=== PATIENT | male | born 1975 | race Caucasian/White ===

== ENCOUNTER → 2017-02-17 | Outpatient (CLI) | payer OTHER ==
[~2017-02-17] MED LIST: HYDROCODONE-AP1 EAC6 PO; IBUPROFEN 800800 M1 PO; LISINOPRIL5 MG PO; MELATONIN5 M1 PO; OXYCODONE HCL30 MG PO
== END ==
LOC: RAD 08:39 → CAT 08:39
DX: K57.92 Diverticulitis of intestine, part unspecified, without perforation or abscess without bleeding (principal); K76.0 Fatty (change of) liver, not elsewhere classified; K42.9 Umbilical hernia without obstruction or gangrene; K52.9 Noninfective gastroenteritis and colitis, unspecified

== ENCOUNTER → 2017-03-10 | Outpatient (CLI) | payer OTHER ==
[~2017-03-10] MED LIST changes: +AMLODIPINE BESY10 MG PO; +ATORVASTATIN CA40 MG PO; +BRILINTA90 MG PO; +CARVEDILOL12.5 MG PO; +CELEXA20 MG PO; +CLONIDINE0.1 PO; +FLAGYL500 MG PO; +LISINOPRIL10 MG PO; +NORVASC10 MG PO; +XANAX 0.5 MG0.5 MG PO
== END ==
LOC: CAT 07:37
DX: L02.91 Cutaneous abscess, unspecified (principal)

== ENCOUNTER → 2017-03-21 | Outpatient (CLI) | payer OTHER | LOC: RAD 07:36 | DX: L98.8 Other specified disorders of the skin and subcutaneous tissue (principal); K57.92 Diverticulitis of intestine, part unspecified, without perforation or abscess without bleeding ==

== ENCOUNTER 2017-04-20 08:01 | Inpatient (IN) | payer OTHER ==
[~2017-04-20] VITALS: Ht 190.5 cm; Wt 105.7 kg
--- NOTE | ~2017-04-20 | EKG ---
[address] [place] [address] ELECTROCARDIOGRAM REPORT Name: KEO COOK Room #: 412-P ADM IN M.R.#: [id number] Admission: 04/20/17 Attend Phys: Corey Camejo MD, F Discharge: Date of : 77 Report #: [id number] THIS REPORT FOR: //name// 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
--- NOTE | ~2017-04-20 | HC ---
[facility] [place] [address] CONSULTATION Name: KEO COOK Room #: 412-P [facility] IN M.R.#: [id number] Admission: 04/20/17 Attend Phys: Corey Camejo MD, F Discharge: Date of : 77 Report #: [id number] THIS REPORT FOR: //name// CC: Kd Camejo REASON FOR CONSULTATION: I was asked to evaluate concerning sigmoid diverticulitis with fistula and pelvic abscess. Initially diagnosed first week of January. Drain was placed. IV antibiotics started. Cultures revealed mixed gilberto including E. coli peptostreptococcus, Bacteroides fragilis, Shanda albicans. Treated with outpatient IV antibiotics and switched to oral therapy. During his outpatient treatment, he had replacement of the pelvic drain. CAT scan showed stability of the pelvic process with persistent enteric fistula. Other complication included hypertension which was addressed by his primary care. He is now postoperative day #1 from sigmoid resection and clearance of the pelvic abscess. He also had primary repair of incarcerated epigastric hernia. Postoperatively, he has done well. I discussed the findings with Dr. Camejo. It was noted that a small amount of pus was encountered with dissection off the pelvic wall. No intraoperative complications were evident. Postoperatively, has been on cefoxitin. ALLERGIES: PENICILLIN, reaction not known. Tolerated cephalosporins. MEDICATIONS: As noted on his MAR including cefoxitin. FAMILY HISTORY: Noncontributory. 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 PAST MEDICAL HISTORY: Ventral hernia repair, knee surgery. REVIEW OF SYSTEMS: Blood pressure now is under control. No other pulmonary, GI or complaints. PHYSICAL EXAMINATION: VITAL SIGNS: He is afebrile, hemodynamically stable. GENERAL: He is alert and cooperative and pleasant, in reasonable pain control. HEENT: Unremarkable. CHEST: Clear. HEART: Regular. ABDOMEN: Mild diffuse tenderness. Abdominal incisions dressed and dry. EXTREMITIES: Unremarkable. LABORATORY DATA: Electrocardiogram unremarkable. Hemoglobin 12.4, WBC 9.8, platelet count 288,000, differential unremarkable. Sodium 137, potassium 4.4, bicarbonate 25, creatinine 0.9. Path report pending. 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 This was taken down and has primary anastomosis. No intraoperative cultures obtained. We will continue antibiotic therapy with cefoxitin through the weekend. We will reevaluate prior to discharge. <ELECTRONICALLY SIGNED> By: Johnathon Liriano MD 04/24/17 1548 1303 1806 Johnathon Liriano MD /nt
--- NOTE | ~2017-04-20 | S ---
[facility] [place] [address] SURGICAL PATH RPT PROCEDURE Name: FREDERIC COOK Room #: 412-P ADM IN M.R.#: [id number] Admission: 04/20/17 Date of : 77 Discharge: Report #: [id number] Path Case #: [id number] PATHOLOGY REPORT COLLECTION DATE: 04/20/2017 RECEIVED DATE: 04/20/2017 SUBMITTING PHYS: Dr. Corey Camejo OTHER PHYS: Dr. Gerard Membreno, DO Dr. Baldev Gipson SPECIMEN(S) RECEIVED: A.Umbilical hernia sac B.Sigmoid colon * * * * * * * * * * * * FINAL DIAGNOSIS: A. Umbilical hernia sac, repair: - Reactive changes and congested tissue, compatible with hernia sac. B. Sigmoid colon, colectomy: - Marked acute diverticulitis. - Negative for dysplasia or malignancy. - Margins of resection unremarkable. (IUV:leonardo; 04/24/2017) PATHOLOGIST: Korina Arechiga M.D. REPORT ELECTRONICALLY SIGNED BY: Korina Arechiga M.D. DATE/TIME: 04/24/2017 14:47 * * * * * * * * * * * * GROSS PATHOLOGY: A. Received in formalin labeled "Frederic Cook, hernia sac (umbilical)," is a piece of fibroadipose tissue with attached fibromembranous tissue measuring 4.2 x 4.1 x 2.5 cm. No nodules or lesions are identified. Vehicle Service Attendant tissue is submitted in cassette A1. B. The specimen is received in formalin labeled "Frederic Cook sigmoid colon". Received is an unoriented segment of colon measuring 23.8 cm in length by 3.7 cm in diameter. One margin is stapled closed and the opposite margin is opened. The serosal surface is pink-rutledge to dusky rutledge-waller appearance with a moderate amount of overlying adhesions. The attached pericolic fat measures up to 4.7 cm in thickness. The specimen is opened along the antimesenteric line to reveal light waller to pink-waller mucosa with normal architectural folds. Multiple diverticula are present. There is an area of possible perforation present. The opposing serosal surface is inked [facility] [place] [address] SURGICAL PATH RPT PROCEDURE Name: FREDERIC COOK Room #: [facility] IN M.R.#: [id number] Admission: 04/20/17 Date of : 77 Discharge: Report #: [id number] Path Case #: [id number] black. The specimen is submitted representatively as follows: B1 stapled margin B2 opened margin B3 possible perforation B4-B5 goodwill representative sections of diverticula. (CAA; 04/21/2017) CLINICAL HISTORY: Diverticulitis INITIAL CPT CODE(S): A; 87458 B; 65492 Professional services performed by [facility] at [facility] [address] [place] [address] Technical services performed by [facility] at [address] [place] [address]., [address], [place] [address]. [facility] [address] [place] [address] PHONE: [phone] DIRECTOR: Cameron Kearney M.D. * * * END OF REPORT * * *
--- NOTE | ~2017-04-20 | O ---
[facility] [place] [address] OPERATIVE REPORT Name: KEO COOK Room #: 412-P [facility] IN M.R.#: [id number] Admission: 04/20/17 Attend Phys: Corey Camejo MD, F Discharge: Date of : 77 Report #: [id number] THIS REPORT FOR: //name// CC: Johnathon Camejo MD DATE OF SERVICE: 04/20/2017 SURGEON: Corey Camejo MD RN BONE MARROW TRANSPLANT: Gerard Membreno DO PREOPERATIVE DIAGNOSES: 1. Sigmoid diverticulitis/colitis with abscess and fistulization. 2. Epigastric hernia. POSTOPERATIVE DIAGNOSES: 1. Sigmoid diverticulitis/colitis with abscess and fistulization. 2. Incarcerated epigastric hernia. PROCEDURES: 1. Laparoscopic sigmoid colectomy with hand assistance. 2. Laparoscopic mobilization of the splenic flexure. 3. Laparoscopic lysis of adhesions. 4. Primary repair of incarcerated epigastric hernia. 5. Placement of topical negative pressure dressing (LYNDA). ANESTHESIA: General endotracheal anesthesia and local anesthetic. ESTIMATED BLOOD LOSS: 75 mL SPECIMEN: Sigmoid colon, epigastric hernia sac. COMPLICATIONS: None appreciated. INDICATIONS FOR PROCEDURE: This is a 41-year-old male patient with a left pelvic abscess. The patient was admitted to [facility] on 01/31/2017 with abdominal pain. He was found to have an abscess, felt to be secondary to either diverticulitis or colitis. A percutaneous drain was placed by Interventional Radiology and the patient was placed on IV antibiotics. He was dismissed from the hospital and has been followed closely. Followup CT showed persistent thickening and stranding of the sigmoid colon suggestive of diverticulitis or colitis with an adjacent abscess with extraluminal gas. There was no evidence for a new abscess or fluid collection. Tube check revealed the [facility] [address] [place] [address] OPERATIVE REPORT Name: KEO COOK Room #: 412-P [facility] IN [facility].#: [id number] Admission: 04/20/17 Attend Phys: Corey Camejo MD, F Discharge: Date of : 77 Report #: [id number] catheter tubing to be coiled in the site of the previous abscess. The cavity appeared to have completely resolved; however, upon injection of contrast into the drain, contrast immediately entered the sigmoid colon where numerous diverticula were seen. The drain was left in place. The drain continues to produce purulent fluid. The patient denies fever or chills and his bowels are functional. He presents today for laparoscopic, possible open sigmoid colectomy, possible ileostomy. OPERATIVE FINDINGS: Upon entrance into the abdominal cavity laparoscopically, the epigastric hernia was visualized 2 cm cephalad to the umbilicus. It was incarcerated with omentum and abdominal wall fat. The sigmoid colon was tightly adherent to the abdominal and pelvic sidewall. After taking the colon down off the abdominal and pelvic sidewall, soft areas of the colon were identified proximally and distally. After resecting the bowel, mobilization of the splenic flexure was necessary to create a tension-free anastomosis. Hand assist was used to take down the splenic flexure. After creation of the 29 mm EEA stapled end-to-end anastomosis, the initial leak test showed small air bubbles. The bubbles appeared to be emanating from the anterior staple line. Interrupted Lembert sutures were placed and follow up leak test was negative. Tisseel was placed on the anastomosis thereafter. No other significant intra-abdominal pathology was identified. At the conclusion of the operation, the sponge, needle and instrument counts were correct. DESCRIPTION OF PROCEDURE IN DETAIL: After the risks, benefits and expectations, the operations were discussed in detail with the patient, informed consent was obtained. The patient was identified in the preoperative holding area. He was given IV antibiotics as documented in the chart in [facility] with the [facility] metrics. The patient was then taken to the operating room and he was placed in the supine position. SCDs were placed on the patient's bilateral lower extremities and pneumatic compression was initiated. The patient was then given IV sedation and he was intubated without incident. He was placed in the low lying dorsal lithotomy position in [facility]. His abdomen was then prepped and draped in the standard sterile fashion. A time-out was performed to identify the correct patient and procedure. Local anesthetic was infiltrated into the skin and subcutaneous tissue in the right upper quadrant of the abdomen where a small transverse incision was made. A 5 mm Visiport was placed intraabdominally with a 0-degree angled laparoscope. Pneumoperitoneum was achieved with insufflation of carbon dioxide to 15 mmHg. A 30-degree angled laparoscope was then inserted. A right lower quadrant 12 mm and upper epigastric 5 mm port were each placed under direct visualization after local anesthetic was infiltrated into the skin and subcutaneous tissue and appropriately sized incisions were made. An additional 5 mm port was placed in the left lower quadrant using a similar technique. The tightly adherent and inflamed sigmoid colon was dissected off of the left [facility] [address] [place] [address] OPERATIVE REPORT Name: KEO COOK Room #: 412-P [facility] IN ..#: [id number] Admission: 04/20/17 Attend Phys: Corey Camejo MD, F Discharge: Date of : 77 Report #: [id number] abdominal and pelvic sidewall with sharp dissection, blunt dissection and use of the EnSeal energy device. A small amount of pus was encountered. The drain was not seen. The rectosigmoid colon was then divided with 2 firings of the green load endoscopic 60 mm powered BARNEY stapler. A window was made in the mesentery to allow for this. The sigmoid colon mesentery and inferior mesenteric artery were then divided with the EnSeal energy device with good hemostasis. The inferior mesenteric artery was divided as well with good hemostasis. Dissection was then carried along the white line of Toldt up to an area of the colon that was soft and uninvolved with inflammation. I then placed the wound protector portion of the Gelport to the lower midline incision that encompassed the epigastric hernia. A sharp #10 blade scalpel was used to make the incision and electrocautery was used to dissect through the subcutaneous tissue down to the fascia. The fascia and peritoneum were opened along the length of the incision. The hernia sac was excised and sent for specimen. After placement of the wound protector for the Gelport, the colon was delivered through the incision. An auto pursestring device was placed on the colon and the excess colon was excised to be sent for specimen. The tails of the pursestring suture were tagged and the colon was sized. The 29 mm EEA stapler was chosen. The anvil was placed and the pursestring suture was tied. An additional 3-0 nylon pursestring suture was placed to tighten the colon around the stalk of the anvil. The excess fat was dissected off the colon as well with electrocautery. The colon was then placed within the abdominal cavity and the Gelport was attached. The abdominal cavity was reinsufflated. I then attempted to bring the anvil down to the rectal stump, but was unable to do so without significant tension. Decision was made to mobilize the splenic flexure. Using hand assist through the Gelport, the splenic flexure was mobilized with blunt dissection and the EnSeal device with good hemostasis. After doing so, I was able to approximate the anvil to the rectal stump without tension. The sizers were used to dilate the rectum from below. The dilators were passed easily with appropriate traction on the rectum laparoscopically. The 29 mm XL EEA stapler was then advanced to the staple line and the spike was advanced. The anvil and stapler were connected, tightened, and fired. The donuts were then removed and were complete. The leak test was performed next. The pelvis was filled with normal saline and the colon was occluded proximal to the anastomosis. The rigid proctoscope was used to insufflate air into the rectal vault. Small air bubbles were seen emanating from the anterior staple line. Care had been taken to ensure that there was no twisting of the colon when the anastomosis was created. Due to the air bubbles, the fluid was suctioned from the abdominal cavity and the GelPort was disconnected. Interrupted 3-0 PDS Lembert sutures were placed and anastomosis was reevaluated for a leak. No air bubbles were seen with the second leak test. The fluid was suctioned from the abdominal cavity. 10 mL of Tisseel was applied to the anastomosis. No other significant pathology was seen intraabdominally. [address] [address] OPERATIVE REPORT Name: KEO COOK Room #: 412-P [facility] IN M.R.#: [id number] Admission: 04/20/17 Attend Phys: Corey Camejo MD, F Discharge: Date of : 77 Report #: [id number] The 12 mm port site fascial opening was closed with Delvin-Duc laparoscopic fascial closure device using a 0 PDS suture. The suture was tied under direct visualization to ensure no incorporation of intra-abdominal content. The ports were then removed. The midline abdominal wall fascia was closed with a running #1 PDS suture incorporating the hernia defect. The wound was then irrigated. Local anesthetic was infiltrated subfascially. Jefferson were used to close the lower midline incision as well as the laparoscopic port sites. The percutaneous drain placed by Interventional Radiology was removed prior to closing the abdominal cavity. The drain was not encountered intraabdominally. The patient's skin was then cleansed and the LYNDA dressing was applied. The patient tolerated the procedure well. He was awakened, extubated and taken to recovery room in a stable condition with no apparent intraoperative complications. <ELECTRONICALLY SIGNED> By: Corey Camejo MD, FACS 04/21/17 0829 2202 2324 Corey Camejo MD, FACS /nt
[~2017-04-20 08:01] MED LIST changes: -AMLODIPINE BESY10 MG PO; -ATORVASTATIN CA40 MG PO; -BRILINTA90 MG PO; -CARVEDILOL12.5 MG PO; -CELEXA20 MG PO; -CLONIDINE0.1 PO; -NORVASC10 MG PO; -XANAX 0.5 MG0.5 MG PO
[2017-04-20 09:52] VITALS: BP 128/98
[2017-04-20 16:59] VITALS: BP 137/94
[2017-04-20 20:00] VITALS: BP 133/88
[2017-04-21 04:00] VITALS: BP 130/82
[2017-04-21 04:56] LABS: BASOPHILS 0.2 % (0.0-2.0); EOSINOPHILS 0.3 % (0.0-3.0); HEMATOCRIT 36.2 % (42.0-52.0); HEMOGLOBIN 12.4 gm/dL (14.0-18.0); LYMPHOCYTES 20.1 % (24.0-44.0); MCH 30.5 pg (26.0-34.0); MCHC 34.3 g/dL (28.0-37.0); MCV 88.9 fL (80.0-100.0); MONOCYTES 7.1 % (1.0-8.0); PLATELET COUNT 288 thou/uL (150-400); POLYS 72.3 % (36.0-66.0); RBC 4.07 mil/uL (4.50-6.00); RDW 16.8 % (10.5-14.5); WBC 9.8 thou/uL (4.0-11.0)
[2017-04-21 05:01] LABS: CALCIUM 7.7 mg/dL (8.5-10.1); CREATININE 0.9 mg/dL (0.7-1.3); POTASSIUM 4.4 mmol/L (3.5-5.1)
[2017-04-21 07:20] VITALS: BP 140/89
[2017-04-21 15:30] VITALS: BP 194/130
[2017-04-21 15:50] VITALS: BP 175/119
[2017-04-21 20:00] VITALS: BP 153/113
[2017-04-22 04:00] VITALS: BP 166/117
[2017-04-22 06:55] LABS: ABSOLUTE NEUTROPHILS 7.2 thou/uL (1.4-8.2); BASOPHILS 0.6 % (0.0-2.0); EOSINOPHILS 0.9 % (0.0-3.0); HEMATOCRIT 37.1 % (42.0-52.0); HEMOGLOBIN 12.8 gm/dL (14.0-18.0); LYMPHOCYTES 19.2 % (24.0-44.0); MCH 30.4 pg (26.0-34.0); MCHC 34.6 g/dL (28.0-37.0); MCV 87.9 fL (80.0-100.0); MONOCYTES 5.7 % (1.0-8.0); PLATELET COUNT 263 thou/uL (150-400); POLYS 73.6 % (36.0-66.0); RBC 4.23 mil/uL (4.50-6.00); RDW 16.7 % (10.5-14.5); WBC 9.8 thou/uL (4.0-11.0)
[2017-04-22 07:09] LABS: CALCIUM 8.2 mg/dL (8.5-10.1); CREATININE 0.8 mg/dL (0.7-1.3); POTASSIUM 3.5 mmol/L (3.5-5.1)
[2017-04-22 09:51] VITALS: BP 140/102
[2017-04-22 12:00] VITALS: BP 138/91
[2017-04-22 17:00] VITALS: BP 152/106
[2017-04-22 20:19] VITALS: BP 159/110
[2017-04-23 04:00] VITALS: BP 189/126
[2017-04-23 04:48] LABS: HEMATOCRIT 35.4 % (42.0-52.0); HEMOGLOBIN 12.2 gm/dL (14.0-18.0); MCH 30.2 pg (26.0-34.0); MCHC 34.5 g/dL (28.0-37.0); MCV 87.5 fL (80.0-100.0); RBC 4.05 mil/uL (4.50-6.00); RDW 17.1 % (10.5-14.5); WBC 9.6 thou/uL (4.0-11.0)
[2017-04-23 04:55] LABS: CALCIUM 8.3 mg/dL (8.5-10.1); CREATININE 0.8 mg/dL (0.7-1.3); POTASSIUM 3.7 mmol/L (3.5-5.1)
[2017-04-23 07:20] VITALS: BP 188/123
[2017-04-23 15:40] VITALS: BP 144/101
[2017-04-23 20:38] VITALS: BP 171/107
[2017-04-23 21:05] VITALS: BP 153/107
[2017-04-24 05:14] VITALS: BP 172/112
[2017-04-24 08:03] VITALS: BP 154/104
[2017-04-24 16:03] VITALS: BP 153/104
[2017-04-24 16:43] VITALS: BP 99/68
[2017-04-24 19:14] VITALS: BP 179/111
[2017-04-24 22:25] VITALS: BP 158/109
[2017-04-25 04:00] VITALS: BP 154/109
[2017-04-25 07:25] VITALS: BP 160/110
[2017-04-25 15:26] VITALS: BP 144/99
[2017-04-25 20:00] VITALS: BP 148/108
[2017-04-26] VITALS: BP 165/104
[2017-04-26 05:06] VITALS: BP 150/105
[2017-04-26 07:08] VITALS: BP 163/116
[2017-04-26] MEDS ORDERED: NORVASC10 MG PO (11:53)
[2017-04-26] MEDS ORDERED: CARVEDILOL12.5 MG PO (11:53)
[2017-04-26] MEDS ORDERED: HYDROCODONE-AP1 EAC6 PO (13:34)
[2017-04-26 14:03] VITALS: BP 163/116
== END 2017-04-26 14:59 | disposition home or self-care (01) | DRG 330 ==
LOC: TBA 08:01 → PRE 09:44 → 4N 17:27
PROVIDERS: Surgery
PROC: 0DTN4ZZ Resection of Sigmoid Colon, Percutaneous Endoscopic Approach (ICD-10-PCS; principal; 2017-04-20)
PROC: 0WQF4ZZ Repair Abdominal Wall, Percutaneous Endoscopic Approach (ICD-10-PCS; principal; 2017-04-20)
DX: K57.20 Diverticulitis of large intestine with perforation and abscess without bleeding (principal); K43.6 Other and unspecified ventral hernia with obstruction, without gangrene; K52.9 Noninfective gastroenteritis and colitis, unspecified; I10 Essential (primary) hypertension; F41.9 Anxiety disorder, unspecified; L98.8 Other specified disorders of the skin and subcutaneous tissue
CPT/HCPCS: 10790; 50010; 50101; 50221; 50249; 50290; 50386; 50455; 50555; 50558; 50740; 50804; 51398; 51412; 51437; 51489; 52182; 52265; 53307; 54022; 56462; 56525; 56526; 56527; 56529; 56530; 56753; 57092; 62110; 62900; 70005

== ENCOUNTER 2017-05-30 04:02 | Inpatient (IN) | payer OTHER ==
[2017-05-30] VITALS (7 sets, daily range): BP systolic 95–148; BP diastolic 69–113
[~2017-05-30] VITALS: Ht 190.5 cm; Wt 99.7 kg
--- NOTE | ~2017-05-30 | HC ---
[facility] [place] [address] CONSULTATION Name: KEO COOK Room #: 170-3 ADM IN M.R.#: [id number] Admission: 05/30/17 Attend Phys: Danis Tapia MD Discharge: Date of : 77 Report #: [id number] THIS REPORT FOR: //name// CC: Danis Nguyen REASON FOR CONSULTATION: Myocardial infarction. HISTORY OF PRESENT ILLNESS: The patient is a 41-year-old gentleman with a history of long-standing hypertension. He has a history of fairly recent hemicolectomy for sigmoid diverticulitis with abscess and fistulization (03/2017). He has healed up nicely from this. Over the past week, he has had 1-2 episodes of midsternal chest pain. This afternoon around 2:00 p.m., he reports recurrence of this same pain, radiating down both arms and up into his neck. Pain came in waves, although became more persistent last night, he presented through the Emergency Department where an EKG at 4:12 a.m. demonstrated anterior septal Q-waves and injury pattern. He denies orthopnea or paroxysmal nocturnal dyspnea. Blood pressure has been fairly well controlled on combination therapy. No history of near syncope or syncope. No prior cardiac history. ALLERGIES: He is allergic to PENICILLIN. MEDICATIONS: Include carvedilol 12.5 mg twice daily, lisinopril 20 mg twice daily, amlodipine, clonidine, and Xanax. PAST MEDICAL HISTORY: Medical records have been reviewed and include a history of hypertension, diverticular abscess with resection, knee surgery, and ventral herniorrhaphy. 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 FAMILY HISTORY: Notable for father who had a heart attack and at the age of 41. REVIEW OF SYSTEMS: All systems negative except as that noted above. PHYSICAL EXAMINATION: GENERAL: Reveals a gentleman in moderate ongoing distress. VITAL SIGNS: Blood pressure is 144/100, heart rate of 80 and regular. He is afebrile. HEENT: There are neither xanthelasma, subcutaneous xanthomata, oral mucosal or digital cyanosis or kyphoscoliosis present. CHEST: Clear to auscultation and percussion. CARDIAC: Distant, regular rate and rhythm with a normal S1, S2. No murmurs, [facility] [address] [place] [address] CONSULTATION Name: KEO COOK Room #: 170-3 ADM IN .R.#: [id number] Admission: 05/30/17 Attend Phys: Danis Tapia MD Discharge: Date of : 77 Report #: [id number] rubs. ABDOMEN: Soft and nontender. EXTREMITIES: Without cyanosis, clubbing or edema. Radial pulses are 2+. NEUROLOGIC: He is alert with a nonfocal exam. IMAGING: EKG is detailed above. LABORATORY DATA: Sodium 133, potassium 4.1, creatinine 0.8. White count 10.8, hemoglobin 14, hematocrit 40, platelet count 376. ProBNP of 444. IMPRESSION: 1. Acute anterolateral myocardial infarction. 2. Hypertension. 3. Ischemic cardiomyopathy. 4. Acute systolic heart failure. RECOMMENDATIONS: 1. Therapy with aspirin, antiplatelet and anticoagulants. 2. Aggressive blood pressure control. 3. Urgent coronary angiography. I have outlined the angiographic procedure in detail including its associated risks as well as the risks associated with a probable percutaneous intervention. After a thorough discussion of the procedure, its risks and alternatives and after answering his questions in detail, he is agreeable to proceeding. By: [id number] Rom Douglas MD, [facility] /nt
--- NOTE | ~2017-05-30 | EKG ---
[place] [address] [facility] [facility] [place] [address] ELECTROCARDIOGRAM REPORT Name: KEO COOK Room #: 213-P ADM IN M.R.#: [id number] Admission: 05/30/17 Attend Phys: Yonny Gonzalez MD Discharge: Date of : 77 Report #: [id number] THIS REPORT FOR: //name// [facility] Test Date: 2017-06-01 Test Time: 06:30:42 Pat Name: KEO COOK Department: Room: 213 P Gender: M Payroll Examiner: SERGIO : 1975 Requested By: Rom Douglas Order Number: [id number] MD: Rom Douglas Measurements Intervals [place] Rate: 89 P: 39 HI: 185 QRS: 13 QRSD: 92 T: 84 QT: 329 QTc: 401 Interpretive Statements Sinus rhythm Extensive anterior infarct, recent ST elevation, consider inferior injury Compared to ECG 05/31/2017 07:21:54 No significant changes Electronically Signed On 06-01-2017 10:37:20 CDT by Rom Douglas [email or web address] <ELECTRONICALLY SIGNED> By: Rom Douglas MD, [facility] 06/01/17 [facility] 9 9 Rom Douglas MD, [facility] /EPI
--- NOTE | ~2017-05-30 | EKG ---
[address] [place] [address] ELECTROCARDIOGRAM REPORT Name: KEO COOK Room #: 213-P ADM IN M.R.#: [id number] Admission: 05/30/17 Attend Phys: Yonny Gonzalez MD Discharge: Date of : 77 Report #: [id number] THIS REPORT FOR: //name// [facility] ED Test Date: 2017-05-30 Test Time: 04:12:58 Pat Name: KEO COOK Department: Room: 213 Gender: M Communications Maintainer: BRIEN : 1975 Requested By: Rom Douglas Order Number: [id number] MD: Rom Douglas Measurements Intervals [place] Rate: 81 P: 30 ID: [id number] QRS: 34 QRSD: 97 T: 75 QT: 346 QTc: 402 Interpretive Statements Sinus rhythm Extensive anterior infarct, acute (LAD) Compared to ECG 04/20/2017 09:26:18 Myocardial infarct finding now present Electronically Signed On 05-30-2017 9:54:24 CDT by Rom Douglas [email or web address] <ELECTRONICALLY SIGNED> By: Rom Douglas MD, [facility] 05/30/17 0954 0412 0412 Rom Douglas MD, [facility] /EPI
--- NOTE | ~2017-05-30 | 2DMMODE ---
[facility] [address] [place] [address] 2 D/M-MODE ECHOCARDIOGRAM Name: JOEYKEO Room #: 213-P [facility] IN .R.#: [id number] Admission: 05/30/17 Attend Phys: Yonny Gonzalez, Discharge: Date of : 77 Date of Service: 05/31/17 1021 Report #: [id number] THIS REPORT FOR: //name// APPROVED REPORT Study performed: 05/31/2017 09:20:36 EXAM: Comprehensive 2D, Doppler, and color-flow Echocardiogram Patient Location: Bedside Room #: 213 Status: routine BSA: 2.32 HR: 84 bpm BP: 108/77 mmHg Rhythm: NSR Other Information Study Quality: Good Indications Acute PA status post PCI, Acute heart failure, LV function. Hx: HTN, tobacco abuse. Echo Enhancing Agent Indication: Endocardial border delineation Agent(s) / Amount(s) Used: Optison 5 cc 2D Dimensions RVDd: 32.04 mm LVEF(%): 52.64 (>50%) IVSd: 10.97 (7-11mm) LVOT Diam: 23.42 (18-24mm) LVDd: 47.70 mm PWd: 11.00 (7-11mm) Ascending Ao: 38.08 (22-36mm) LVDs: 34.80 (25-40mm) Aortic Root: 37.63 mm Morgan's LVEF: 52.64 % Volumes Left Atrial Volume (Systole) Single Plane 4CH: 40.22 mL Single Plane 2CH: 64.36 mL LA ESV Index: 24.00 mL/m2 Aortic Valve AoV Peak Nando.: 1.23 m/s AO Peak Gr.: 6.07 mmHg LVOT Max P.23 mmHg LVOT Max V: 1.03 m/s [facility] [place] [address] 2 D/M-MODE ECHOCARDIOGRAM Name: KEO COOK Room #: 213-P [facility] IN M.R.#: [id number] Admission: 05/30/17 Attend Phys: Yonny Gonzalez, Discharge: Date of : 77 Date of Service: 05/31/17 1021 Report #: [id number] BRIELLE Vmax: 3.59 cm2 Mitral Valve E/A Ratio: 0.7 MV Decel. Time: 172.27 ms MV E Max Nando.: 0.51 m/s MV A Nando.: 0.71 m/s MV PHT: 49.96 ms IVRT: 83.04 ms Pulmonary Valve PV Peak Nando.: 0.94 m/s PV Peak Gr.: 3.51 mmHg Pulmonary Vein P Vein S: 0.69 m/s P Vein A: 0.34 m/s P Vein D: 0.52 m/s P Vein A Dur.: 96.9 msec P Vein S/D Ratio: 1.33 Tricuspid Valve TR Peak Nando.: 2.25 m/s RAP Estimate: 5.00 mmHg TR Peak Gr.: 20.28 mmHg PA Pressure: 25.00 mmHg Left Ventricle The left ventricle is normal size. There is normal left ventricular wall thickness. Left ventricular systolic function is moderately decreased. Distal septal, distal anterolateral and apical hypokinesis LVEF is 35%. Mild diastolic dysfunction is present (impaired relaxation pattern). Right Ventricle The right ventricle is normal size. The right ventricular systolic function is normal. Atria The left atrium size is normal. The right atrium size is normal. Aortic Valve The aortic valve is normal in structure. No aortic regurgitation is present. There is no aortic valvular stenosis. Mitral Valve The mitral valve is normal in structure. Trace mitral regurgitation. [facility] [address] [place] [address] 2 D/M-MODE ECHOCARDIOGRAM Name: KEO COOK Room #: 213-P ADM IN .R.#: [id number] Admission: 05/30/17 Attend Phys: Yonny Gonzalez, Discharge: Date of : 77 Date of Service: 05/31/17 1021 Report #: [id number] Tricuspid Valve The tricuspid valve is normal in structure. Trace tricuspid regurgitation. Estimated PAP is 25mmHg. Pulmonic Valve The pulmonary valve is normal in structure. There is no pulmonic valvular regurgitation. Great Vessels Ascending aorta and aortic root measure at the upper limits of normal. IVC is normal in size and collapses >50% with inspiration. Pericardium There is no pericardial effusion. <Conclusion> Left ventricular systolic function is moderately decreased. Mid to distal septal, distal anterolateral and apical hypokinesis LVEF is 35%. Mild diastolic dysfunction The aortic valve is normal in structure. No aortic regurgitation or stenosis The mitral valve is normal in structure. Trace mitral regurgitation. Trace tricuspid regurgitation. Estimated pulmonary artery pressure of 25mmHg. There is no pericardial effusion. <ELECTRONICALLY SIGNED> By: Rom Douglas MD, FACC 05/31/17 1021 1021 1021 Rom Douglas MD, FACC /INF
--- NOTE | ~2017-05-30 | EKG ---
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 : 1975 Requested By: Rom Douglas Order Number: [id number] MD: Rom Douglas Measurements Intervals [place] Rate: 80 P: 30 WI: 176 QRS: 18 QRSD: 91 T: 56 QT: 345 QTc: 398 Interpretive Statements Sinus rhythm Anterolateral infarct, recent (LAD) ST elevation, consider inferior injury Compared to ECG 05/30/2017 04:12:58 ST (T wave) deviation present Myocardial infarct finding still present Electronically Signed On 05-30-2017 16:48:00 CDT by Rom Douglas [email or web address] <ELECTRONICALLY SIGNED> By: Rom Douglas MD, FACC 05/30/17 1648 1347 1347 Rom Douglas MD, [facility] /EPI
--- NOTE | ~2017-05-30 | CATHLAB ---
[facility] [address] [place] [address] INVASIVE PROCEDURE REPORT Name: KEO COOK Room #: 213-P ADM IN .R.#: [id number] Admission: 05/30/17 Attend Phys: Ynony Gonzalez, Discharge: Date of : 77 Date of Service: 05/30/17 0930 Report #: [id number] THIS REPORT FOR: //name// APPROVED REPORT Study performed: 05/30/2017 04:51:29 Patient Details Patient Status: In-Patient Room #: The patient is a 41 year-old male Event Personnel Rom Douglas Sand Buffer, Isael Daigle RN RN, Adelita Boswell RN RN, Evens Pink Mahmood, Amber Monitor Procedures Performed Art Access - R femoral artery* 73326 Initial Mod Sed Same Phys/QHP Gr5y [id number] Left Heart Cath w/or w/o Coronaries [id number] [facility] B[facility] Revasc AMI Total/Sub Single LAD C9606 AMIREVSING Hemostasis w/ Mynx Indication STEMI (>12 hrs to = 24 hrs) Risk Factors Arterial HypertensionDysplipidemia , Hypercholesterolemia, Tobacco History () Procedure Narrative The patient was brought emergently to the Cardiac Catheterization Laboratory and was prepped and draped in a sterile manner. The was infiltrated with 1% Lidocaine subcutaneous anesthesia. A PINNACLE 6FR Sheath #[id number] sheath was inserted into the RFA^. Coronary angiography was performed using coronary diagnostic catheters. The right coronary system was accessed and visualized with a JR 4 catheter. The left coronary system was accessed and visualized with a JL 4 catheter. The left ventricle was accessed and visualized with a Pigtail catheter. Left ventricular/Aortic Valve gradient assessed via catheter pullback. Left ventriculogram was performed in BISHOP projection. Closure device was deployed with a 6 Fr Mynx. The patient tolerated the procedure well and there were no complications associated with the procedure. There was no hematoma. Intraoperative Conscious Sedation [facility] [address] [place] [address] INVASIVE PROCEDURE REPORT Name: KEO COOK Room #: 213-P [facility] IN [facility].#: [id number] Admission: 05/30/17 Attend Phys: Yonny Gonzalez, Discharge: Date of : 77 Date of Service: 05/30/17 0930 Report #: [id number] Sedation start time: 06:15 Case end Time: 06:32 Fentanyl 25 mcg Fluoro Time: 19.27 minutes Dose: DAP 43698.20 cGycm2 3407 mGy Contrast Type and Amount: Visipaque 335 ml Coronary Angiography The patient's coronary anatomy is left dominant. Diagnostic Cath Left Main Normal LAD The LAD was occluded just after the first septal perforating branch and before a large, single anterolateral vessel. Circumflex Dominant and angiographically normal L PDA Large in caliber and angiographically normal L SARKIS Large in caliber and angiographically normal Right Coronary Small, nondominant, and angiographically normal Left Ventriculography The left ventricle is mild to moderately dilated in size with abnormal contractility. The left ventricular ejection fraction is estimated to be 30-35%. Left ventricular wall motion abnormalities are present. There is no mitral insufficiency. Extensive hypokinesis involving the mid to distal anterolateral wall, apex, and inferoapex Hemodynamics The aortic pressure is 158/105 mmHg with a mean of 130 mmHg. The left ventricular pressure is 137/2 mmHg with a mean of mmHg. The left ventricular end diastolic pressure is 24 mmHg. PCI Technique Lesion Anticoagulation was achieved with Heparin, Integrilin. Patient was preloaded with Brillinta. Percutaneous coronary intervention was performed on the proximal portion of mid left anterior descending artery segment. The lesion stenosis prior to intervention was 100% with FLO 0 flow. A LAUNCHER 6FR EBU 3.5 #[id number] Guide Catheter was used to engage the ostium. A Luge Wire .014 x 182CM #[id number] Interventional Guidewire was used to cross the lesion. BALLOON DILATION A Balloon catheter Euphora RX 2.25 x 12 #[id number] was inserted and inflated up to 14.00atm for 25seconds. Repeat angiography revealed [facility] [address] [place] [address] INVASIVE PROCEDURE REPORT Name: KEO COOK Room #: 213-P [facility] IN M.R.#: [id number] Admission: 05/30/17 Attend Phys: Yonny Gonzalez, Discharge: Date of : 77 Date of Service: 05/30/17 0930 Report #: [id number] the following post-dilatation results: moderately severe residual stenosis. Additional Inflation: 10.00atm for 18seconds. Additional Inflation: 8.00atm for 26seconds. STENT DEPLOYMENT A drug-eluting stent RESOLUTE RX 3.0 X 15 #[id number] was inserted and inflated up to 12.00atm for 31seconds. Repeat angiography revealed the following post-stent deployment results: filling defect seen at distal margin of stent, probably representing focal dissection. POST STENT DEPLOYMENT BALLOON DILATION A Balloon catheter TREK NC RX 3.0 X 8 #[id number] was inserted and inflated up to 18.00atm for 34seconds. Repeat angiography revealed the following post-dilatation results: persistant, improved filling defect after several high pressure inflations. Additional Inflation: 18.00atm for 26seconds. Additional Inflation: 18.00atm for 33seconds. With this persistent focal distal dissection I elected to place a short shent at the distal margin of this Resolute stent STENT DEPLOYMENT A drug-eluting stent RESOLUTE RX 2.5 X 8 #[id number] was inserted and inflated up to 14.00atm for 25seconds. Repeat angiography revealed the following post-stent deployment results: Significantly improved following stent and high pressure post-dilatation with same NC-Trek balloon. 0% residual stenosis. Mild, diffuse plaquing throughout LAD Conclusion 1. Moderately severe left ventricular dysfunction with mid to distal anterolateral, apical, and inferoapical hypokinesis. EF 30-35% 2. Normal left main 3. Occulsion of the proximal portion of the mid LAD successfully stented with 3.0 x 15, then 2.5 x 8mm Resolute stents, post-dilated to 3.3mm with non-compliant balloon 4. Normal, co-dominant circumflex 5. Small, non-dominant RCA Recommendations Smoking Cessation Cardiac Rehabilitation Referral Aggressive Medical Therapy Medications Administered GABRIELLE Inhibitor (any) Aspirin (any) Beta Óscar (any) [address] [address] INVASIVE PROCEDURE REPORT Name: KEO COOK Room #: 213-P ADM IN M.R.#: [id number] Admission: 05/30/17 Attend Phys: Yonny Gonzalez, Discharge: Date of : 77 Date of Service: 05/30/17929 Report #: [id number] Statin (any) Ticagrelor Cardiac Rehabilitation Referral Smoking Cessation <ELECTRONICALLY SIGNED> By: Rom Douglas MD, FACC 05/30/17929 9 9 Rom Douglas MD, FACC /INF
--- NOTE | ~2017-05-30 | EKG ---
[address] [place] [address] ELECTROCARDIOGRAM REPORT Name: KEO COOK Room #: 213-P ADM IN M.R.#: [id number] Admission: 05/30/17 Attend Phys: Yonny Gonzalez MD Discharge: Date of : 77 Report #: [id number] THIS REPORT FOR: //name// [facility] Test Date: 2017-05-31 Test Time: 07:21:54 Pat Name: KEO COOK Department: Room: 213 P Gender: M Stock Holder: SERGIO : 1975 Requested By: Rom Douglas Order Number: [id number] MD: Derick Mckoy Measurements Intervals [place] Rate: 76 P: 36 CO: 175 QRS: 38 QRSD: 94 T: 83 QT: 362 QTc: 408 Interpretive Statements Sinus rhythm Probable anterolateral infarct, acute ST elevation, consider inferior injury Compared to ECG 05/30/2017 13:47:33 No significant changes Electronically Signed On 05-31-2017 8:03:57 CDT by Derick Mckoy [email or web address] <ELECTRONICALLY SIGNED> By: Derick Mckoy MD 05/31/17802 0 0 Derick Mckoy MD /THANIA
[~2017-05-30 04:02] MED LIST changes: +CARVEDILOL12.5 MG PO; +NORVASC10 MG PO
[2017-05-30 04:30] LABS: ABSOLUTE NEUTROPHILS 7.5 thou/uL (1.4-8.2); BASOPHILS 0.7 % (0.0-2.0); EOSINOPHILS 2.7 % (0.0-3.0); HEMATOCRIT 40.6 % (42.0-52.0); HEMOGLOBIN 14.1 gm/dL (14.0-18.0); LYMPHOCYTES 21.4 % (24.0-44.0); MCH 30.3 pg (26.0-34.0); MCHC 34.7 g/dL (28.0-37.0); MCV 87.3 fL (80.0-100.0); MONOCYTES 6.1 % (1.0-8.0); PLATELET COUNT 376 thou/uL (150-400); POLYS 69.1 % (36.0-66.0); RBC 4.65 mil/uL (4.50-6.00); RDW 14.8 % (10.5-14.5); WBC 10.8 thou/uL (4.0-11.0)
[2017-05-30 04:44] LABS: APTT 26.2 Seconds (24.5-32.8); CALCIUM 9.3 mg/dL (8.5-10.1); CREATININE 0.8 mg/dL (0.7-1.3); POTASSIUM 4.1 mmol/L (3.5-5.1); PROTIME 9.8 Seconds (9.3-11.4)
[2017-05-30] MEDS ORDERED: AMLODIPINE BESY10 MG PO (05:00)
[2017-05-30] MEDS ORDERED: CLONIDINE0.1 PO (05:00)
[2017-05-30] MEDS ORDERED: CELEXA20 MG PO (05:01)
[2017-05-30 05:15] LABS: CHOLESTEROL 231 mg/dL (<200); HDL CHOLESTEROL 46 mg/dL (>40); LDL CHOLESTEROL 151 mg/dL (<100); TRIGLYCERIDE 171 mg/dL (<150); VLDL 34 mg/dL (<40)
[2017-05-30 05:16] LABS: SERUM ASSESSMENT Slight Lipemia; TROPONIN-I 47.88 ng/mL (<0.06)
[2017-05-30] MEDS ORDERED: XANAX 0.5 MG0.5 MG PO (09:09)
[2017-05-30 14:15] LABS: GLYCOHEMOGLOBIN (HGB A1C) 5.7 % (4.8-5.6)
[2017-05-31 02:40] LABS: HEMATOCRIT 35.9 % (42.0-52.0); MCH 29.7 pg (26.0-34.0); MCHC 33.7 g/dL (28.0-37.0); RBC 4.07 mil/uL (4.50-6.00); RDW 14.8 % (10.5-14.5); WBC 12.6 thou/uL (4.0-11.0)
[2017-05-31 02:49] LABS: HEMOGLOBIN 12.1 gm/dL (14.0-18.0)
[2017-05-31 03:03] LABS: ALBUMIN 2.8 g/dL (3.4-5.0); CALCIUM 8.7 mg/dL (8.5-10.1); POTASSIUM 3.9 mmol/L (3.5-5.1); TOTAL BILIRUBIN 0.6 mg/dL (<0.1-1.0); TOTAL PROTEIN 6.9 g/dL (6.4-8.2)
[2017-05-31 03:21] LABS: TROPONIN-I 80.06 ng/mL (<0.06)
[2017-05-31 05:05] VITALS: BP 108/77
[2017-05-31 05:30] LABS: URINE BILIRUBIN NEGATIVE (Negative); URINE BLOOD NEGATIVE (Negative); URINE CLARITY CLEAR; URINE COLOR YELLOW; URINE GLUCOSE-RANDOM* NEGATIVE (Negative); URINE KETONES NEGATIVE (Negative); URINE LEUKOCYTES-REFLEX NEGATIVE (Negative); URINE NITRITE-REFLEX NEGATIVE (Negative); URINE PROTEIN (DIPSTICK) NEGATIVE (Negative); URINE SPECIFIC GRAVITY <= 1.005 (1.005-1.035); URINE UROBILINOGEN 0.2 E.U./dl (0.2-1.0)
[2017-05-31 08:00] VITALS: BP 111/76
[2017-05-31 12:00] VITALS: BP 99/66
[2017-05-31 16:00] VITALS: BP 95/63
[2017-05-31 19:45] VITALS: BP 109/71
[2017-06-01 04:45] VITALS: BP 130/85
[2017-06-01 07:07] VITALS: BP 119/77
[2017-06-01] MEDS ORDERED: BRILINTA90 MG PO (08:03)
[2017-06-01] MEDS ORDERED: ATORVASTATIN CA40 MG PO (10:51)
[2017-06-01 13:05] VITALS: BP 119/77
== END 2017-06-01 13:30 | disposition home or self-care (01) | DRG 246 ==
LOC: ER 04:02 → EROBS 04:36 → 2N 04:36 → EROBS 05:04 → 2N 08:16
PROVIDERS: Emergency Medicine; Nurse Practitioner Family
PROC: B211YZZ Fluoroscopy of Multiple Coronary Arteries using Other Contrast (ICD-10-PCS; principal; 2017-05-30)
PROC: B215YZZ Fluoroscopy of Left Heart using Other Contrast (ICD-10-PCS; principal; 2017-05-30)
PROC: 4A023N7 Measurement of Cardiac Sampling and Pressure, Left Heart, Percutaneous Approach (ICD-10-PCS; principal; 2017-05-30)
PROC: 027034Z Dilation of Coronary Artery, One Artery with Drug-eluting Intraluminal Device, Percutaneous Approach (ICD-10-PCS; principal; 2017-05-30)
DX: I21.3 ST elevation (STEMI) myocardial infarction of unspecified site (principal); I50.23 Acute on chronic systolic (congestive) heart failure; I25.5 Ischemic cardiomyopathy; I11.0 Hypertensive heart disease with heart failure; F17.210 Nicotine dependence, cigarettes, uncomplicated; E78.5 Hyperlipidemia, unspecified; F12.90 Cannabis use, unspecified, uncomplicated; F41.9 Anxiety disorder, unspecified; Z79.899 Other long term (current) drug therapy; Z88.0 Allergy status to penicillin; Z82.49 Family history of ischemic heart disease and other diseases of the circulatory system; Z90.49 Acquired absence of other specified parts of digestive tract
CPT/HCPCS: 10081